=== PATIENT | female | born 2000 | race Two or more races ===

== ENCOUNTER 2019-04-09 22:57 | Emergency (ER) | payer BC ==
[2019-04-10] MEDS ORDERED: DIPHENHYDRAMINE HCL 25 MG CAPSULE PO ONE (00:03)
[2019-04-10] MEDS ORDERED: FAMOTIDINE 20 MG TABLET PO ONE (00:03)
[2019-04-10] MEDS ORDERED: IBUPROFEN 600 MG TABLET PO ONE (01:28)
[2019-04-10 01:32] VITALS: BP 125/75
--- NOTE | 2019-04-12 09:20 | ER Document Report ---
Entered by KALA HONEYCUTT SCRIBE 04/10/19 0029 Acting as scribe for:EMILY GUERRA MD ED General - General Chief Complaint: Allergic Reaction Stated Complaint: POSSIBLE ALLERGIC REACTION Time Seen by Provider: 04/10/19 00:02 Mode of Arrival: Ambulatory Information source: Patient Notes: Patient is a 19-year-old female who presents to the emergency department today with complaints of a possible allergic reaction to the flu shot. Patient states she got the flu shot at approximately 6:30pm this evening. At around 8:00pm this evening the patient developed wheezing, coughing, "bumps around my eyes", and painful inhalation. Patient states "my lungs literally hurt". Patient denies a history of egg allergies or any allergic reaction to past flu shots. Patient states her symptoms have now resolved without any intervention. TRAVEL OUTSIDE OF THE [place] IN LAST 30 DAYS: No - Related Data Allergies/Adverse Reactions: No Known Allergies Allergy (Verified 04/09/19 23:00) Past Medical History - General Information source: Patient - Social History Smoking Status: Never Smoker Cigarette use (# per day): No Frequency of alcohol use: None Drug Abuse: None Lives with: Family Family History: Reviewed & Not Pertinent Review of Systems - Review of Systems Constitutional: See HPI, Other - possible allergic reaction EENT: See HPI, Throat swelling - subjective Cardiovascular: No symptoms reported Respiratory: See HPI, Cough, Hurts to breathe, Wheezing Gastrointestinal: No symptoms reported Genitourinary: No symptoms reported Female Genitourinary: No symptoms reported Musculoskeletal: No symptoms reported Skin: No symptoms reported Hematologic/Lymphatic: No symptoms reported Neurological/Psychological: No symptoms reported -: Yes All other systems reviewed and negative Physical Exam - Vital signs Vitals: Temp Pulse Resp BP Pulse Ox 99.6 F 113 H 18 125/62 95 04/09/19 23:08 04/09/19 23:08 04/09/19 23:08 04/09/19 23:08 04/09/19 23:08 - Notes Notes: Physical Exam: General: Alert, appears well. HEENT: Normocephalic. Atraumatic. PERRL. Extraocular movements intact. Oropharynx clear. Airway is patent, no posterior oropharynx erythema, exudate, or swelling. Neck: Supple. Non-tender. Respiratory: No respiratory distress. Clear and equal breath sounds bilaterally. No stridor. Cardiovascular: Regular rate and rhythm. Abdominal: Normal Inspection. Non-tender. No distension. Normal Bowel Sounds. Back: No gross abnormalities. Extremities: Moves all four extremities. Upper extremities: Normal inspection. Normal ROM. Lower extremities: Normal inspection. No edema. Normal ROM. Neurological: Normal cognition. AAOx4. Normal speech. Psychological: Normal affect. Normal Mood. Skin: Warm. Dry. Normal color. Course - Re-evaluation Re-evalutation: 04/10/19 01:19 And symptoms improved in the emergency department during observation she was asymptomatic. Discussed use of Benadryl if her symptoms were to recur come to emerge department any difficulty breathing or any other concerns. - Vital Signs Vital signs: Temp Pulse Resp BP Pulse Ox 99.6 F 113 H 18 125/62 95 04/09/19 23:08 04/09/19 23:08 04/09/19 23:08 04/09/19 23:08 04/09/19 23:08 Discharge - Discharge Clinical Impression: Allergic reaction Qualifiers: Encounter type: initial encounter Qualified Code(s): T78.40XA - Allergy, unspecified, initial encounter Condition: Good Disposition: HOME, SELF-CARE Instructions: Acute Allergic Reaction ([facility]) Additional Instructions: Return to the emergency department for any concerns. Use Benadryl 1 to 2 tablets every 6-8 hours as needed if symptoms were to recur Forms: Return to Work I personally performed the services described in the documentation, reviewed and edited the documentation which was dictated to the scribe in my presence, and it accurately records my words and actions.
== END 2019-04-10 01:50 | disposition home or self-care (01) ==
LOC: ER 22:57
DX: T78.40XA Allergy, unspecified, initial encounter (principal); R07.1 Chest pain on breathing; R06.2 Wheezing; R05 Cough; X58.XXXA Exposure to other specified factors, initial encounter
CPT/HCPCS: 99283